=== PATIENT | female | born 1975 | race Hispanic/Latino ===

== ENCOUNTER 2022-08-07 16:28 | Outpatient (CLI) | payer SELFPAY | END 2022-08-07 16:29 | disposition home or self-care (01) | LOC: CSHLAB 16:28 | PROVIDERS: ATTEND Obstetrics & Gynecology | DX: Z01.812 Encounter for preprocedural laboratory examination (principal); N81.4 Uterovaginal prolapse, unspecified; D25.9 Leiomyoma of uterus, unspecified | CPT/HCPCS: 84703; 85027; 86850; 86900; 86901 ==

== ENCOUNTER 2022-08-09 10:17 | Day surgery (SDC) | payer SELFPAY ==
[2022-08-07 13:20] VITALS: BMI 31.3
[2022-08-07 17:30] LABS: Hemoglobin 6.6 g/dL (12.0-15.5); Mean Corpuscular HGB CONC 28.4 g/dL (32.0-36.0); Mean Corpuscular Hemoglobin 20.3 pg (27.0-33.0); Mean Corpuscular Volume 71.4 fl (81.6-98.3); Mean Platelet Volume 10.1 fl (7.4-10.4); Platelet Count 403 10x3/uL (150-450); RBC Distribution Width 19.1 % (11.5-14.5); Red Blood Cell (RBC) Count 3.25 10x6/uL (3.90-5.03); White Blood Cell (WBC) Count 5.3 10x3/uL (3.5-10.5)
[2022-08-07 18:01] LABS: BHCG - Serum Negative (NEGATIVE); Pregs Control Background? CLEAR/WHITE (CLR/WHITE); Pregs Control Bar Appear? YES (CONTROL BAR)
[2022-08-09] MEDS ORDERED: PROPOFOL 20 ML ONE (11:56)
[2022-08-09] MEDS ORDERED: Dexamethasone 20 MG/5 ML VIAL ONE (11:57)
[2022-08-09] MEDS ORDERED: Lidocaine 1% PF 5 ML VIAL ONE (11:57)
[2022-08-09] MEDS ORDERED: Meperidine HCl/PF 25 MG/ML VIAL ONE (11:57)
[2022-08-09] MEDS ORDERED: Ketorolac Tromethamine 30 MG/ML VIAL ONE (11:57)
[2022-08-09] MEDS ORDERED: Fentanyl 100 MCG/2 ML VIAL ONE (11:57)
[2022-08-09] MEDS ORDERED: Ondansetron PF 4 MG/2 ML Vial ONE (11:57)
[2022-08-09] MEDS ORDERED: Midazolam HCl 2 mg/2 ml Vial ONE (11:57)
[2022-08-09] MEDS ORDERED: CEFAZOLIN 2 GM VIAL ONE (12:04)
[2022-08-09] MEDS ORDERED: PHENYLEPHRINE-NS 100 MCG/ML 10 ML SYRINGE ONE (12:18)
[2022-08-09 14:15] LABS: Hemoglobin 7.2 g/dL (12.0-15.5); Mean Corpuscular HGB CONC 28.7 g/dL (32.0-36.0); Mean Corpuscular Hemoglobin 20.2 pg (27.0-33.0); Mean Corpuscular Volume 70.3 fl (81.6-98.3); Mean Platelet Volume 9.6 fl (7.4-10.4); Platelet Count 406 10x3/uL (150-450); RBC Distribution Width 19.2 % (11.5-14.5); Red Blood Cell (RBC) Count 3.57 10x6/uL (3.90-5.03); White Blood Cell (WBC) Count 8.6 10x3/uL (3.5-10.5)
[2022-08-09 14:24] LABS: Anion Gap 11 mmol/L (10-20); BUN (Urea Nitrogen) 7 mg/dL (7.0-18.7); Calc. Creatinine Clearance 123 mL/min (70-130); Calcium 8.7 mg/dL (7.8-10.44); Carbon Dioxide 22 mmol/L (22-29); Chloride 110 mmol/L (98-107); Estimated GFR 110; Glucose 102 mg/dL (70-105); Potassium 4.3 mmol/L (3.5-5.1); Sodium 139 mmol/L (136-145)
== END 2022-08-09 15:55 | disposition home or self-care (01) ==
LOC: CSHSDC 10:17
PROVIDERS: ATTEND Obstetrics & Gynecology
DX: D25.9 Leiomyoma of uterus, unspecified (principal); N81.4 Uterovaginal prolapse, unspecified; D50.0 Iron deficiency anemia secondary to blood loss (chronic); Z98.51 Tubal ligation status
CPT/HCPCS: 36415; 80048; 84703; 85027; 86850; 86900; 86901; 88305; J1100; J1885; J2175; J2250; J2405; J2704; J3010